=== PATIENT | female | born 1955 | race Caucasian/White ===

== ENCOUNTER 2017-05-25 07:46 | Day surgery (SDC) | payer MEDICARE, MEDICAID ==
[~2017-05-25] VITALS: Ht 152.4 cm; Wt 57.6 kg
[2017-05-25 09:32] LABS: BASOPHILS % 0.5 % (0.0-2.0); EOSINOPHILS % 1.5 % (0.0-5.0); HEMOGLOBIN. 13.1 g/dL (12.0-16.0); MEAN CORPUSCULAR VOLUME 92.6 fL (81.0-99.0); MEAN PLATELET VOLUME 7.8 fl (7.4-10.4); MONOCYTES % 8.4 % (2.0-8.0); NEUTROPHILS % 50.6 % (40.0-76.0); PLATELET 259 x1000/uL (130-400); RED BLOOD CELL COUNT 4.21 mill/uL (4.2-5.4); RED CELL DISTRIBUTION WIDTH 12.9 % (11.6-14.6)
[2017-05-25 09:39] LABS: CARBON DIOXIDE 30 mEq/L (21-32); CHLORIDE 107 mEq/L (98-107)
[2017-05-25] MEDS ORDERED: DOCU-138 PO (09:44)
[2017-05-25] MEDS ORDERED: DULO60CA44 PO (09:44)
[2017-05-25] MEDS ORDERED: ATOR20TA65 PO (09:44)
[2017-05-25] MEDS ORDERED: ZOLP10TA6 PO (09:44)
[2017-05-25] MEDS ORDERED: ASPI-1159 PO (09:44)
[2017-05-25] MEDS ORDERED: OMEP40CA34 PO (09:44)
[2017-05-25] MEDS ORDERED: LORA0.5T2 PO (09:44)
[2017-05-25] MEDS ORDERED: ACYC200C PO (09:48)
[2017-05-25] MEDS ORDERED: FENTANYL CITRATE/PF 50MCG/ML 2ML VIAL ONE (09:59)
[2017-05-25] MEDS ORDERED: MIDAZOLAM HCL 2 MG/2 ML VIAL ONE (09:59)
[2017-05-25] MEDS ORDERED: IOHEXOL-300 100 ML BOTTLE ONE (09:59)
[2017-05-25] MEDS ORDERED: LIDOCAINE HCL 1% 20ML VIAL (Pyxis) INJ ONE (10:00)
== END 2017-05-25 17:10 | disposition home or self-care (01) ==
LOC: CCL 07:46
PROVIDERS: ATTEND Internal Medicine Cardiovascular Disease
DX: I35.0 Nonrheumatic aortic (valve) stenosis (principal); I10 Essential (primary) hypertension; R06.09 Other forms of dyspnea; R07.9 Chest pain, unspecified
CPT/HCPCS: 36415; 80048; 85025; 93458; 93567; 99152; 99153; C1760; C1769; C1887; C1893; J1644; J2250; J3010; J3490; Q9967

== ENCOUNTER 2017-12-01 06:31 | Observation (INO) | payer MEDICARE, MEDICAID ==
[~2017-12-01] VITALS: Ht 152.9 cm; Wt 59.0 kg
[~2017-12-01 06:31] MED LIST: ACYC200C PO; ASPI-1159 PO; ATOR20TA65 PO; DOCU-138 PO; DULO60CA44 PO; LORA0.5T2 PO; OMEP40CA34 PO; ZOLP10TA6 PO
[2017-12-01] MEDS ORDERED: FENTANYL CITRATE/PF 50MCG/ML 5ML VIAL ONE (09:12)
[2017-12-01] MEDS ORDERED: PROPOFOL 200MG/20ML VIAL IV ONE (09:12)
[2017-12-01] MEDS ORDERED: MIDAZOLAM HCL 2 MG/2 ML VIAL ONE (09:12)
[2017-12-01] MEDS ORDERED: LIDOCAINE HCL/PF 1% 10 MG/ML 5ML VIAL ONE (09:13)
[2017-12-01] MEDS ORDERED: SUCCINYLCHOLINE CHLORIDE 200MG/10ML VIAL IV ONE (09:13)
[2017-12-01] MEDS ORDERED: VECURONIUM BROMIDE 10 MG/VIAL IV ONE (09:13)
[2017-12-01] MEDS ORDERED: CEFAZOLIN SODIUM 1000MG/VIAL ONE (09:13)
[2017-12-01] MEDS ORDERED: SKIN ADHESIVE 0.7 GM EA TOP ONE ×2 (09:16→09:17)
[2017-12-01] MEDS ORDERED: LIDOCAINE HCL 1% 20ML VIAL (Pyxis) INJ ONE (09:17)
[2017-12-01] MEDS ORDERED: NORMAL SALINE 0.9% 10 ML SYR ONE (09:17)
[2017-12-01] MEDS ORDERED: BUPIVACAINE HCL/PF 0.5% (5MG/ML) 10ML ONE (09:17)
[2017-12-01] MEDS ORDERED: BACITRACIN 50,000 UNITS/VIAL ONE (09:18)
[2017-12-01] MEDS ORDERED: SODIUM CHLORIDE 0.9% 1,000 ML ONE (09:18)
[2017-12-01] MEDS ORDERED: IOPAMIDOL 20 ML VIAL IT ONE (09:47)
[2017-12-01] MEDS ORDERED: GLYCOPYRROLATE 0.2 MG/ML 2ML VIAL ONE (10:16)
[2017-12-01] MEDS ORDERED: ONDANSETRON HCL 4MG/2ML VIAL ONE (11:00)
[2017-12-01] MEDS ORDERED: DEXAMETHASONE 4MG/ML 1ML VIAL ONE (11:01)
[2017-12-01] MEDS ORDERED: HYDROMORPHONE HCL/PF 2MG/ML CPJ IV PRN ×2 (11:15→12:00)
[2017-12-01] MEDS ORDERED: ONDANSETRON HCL 4MG/2ML VIAL IV PRN ×2 (11:15→12:00)
[2017-12-01] MEDS ORDERED: MEPERIDINE HCL/PF 25MG/ML CPJ IV PRN (11:15)
[2017-12-01] MEDS ORDERED: LABETALOL HCL 5MG/ML VIAL 20ML IV PRN (11:15)
[2017-12-01] MEDS ORDERED: MELO-104 PO (12:22)
[2017-12-01] MEDS ORDERED: ALEN70TA46 PO (12:22)
[2017-12-01] MEDS ORDERED: METO-396 PO (12:22)
[2017-12-01 13:00] VITALS: BP 108/54
[2017-12-01 14:39] VITALS: BP 108/54
[2017-12-01] MEDS: KETOROLAC 30MG/ML VIAL IV SCH ×2 (15:37→21:31)
[2017-12-01] MEDS: SODIUM CHLORIDE 0.45% 1,000 ML IV SCH ×2 (15:37→22:40)
[2017-12-01 16:00] VITALS: BP 110/58
[2017-12-01 20:00] VITALS: BP 121/66
[2017-12-01] MEDS ORDERED: ATORVASTATIN CALCIUM 20MG TABLET PO SCH (21:00)
[2017-12-01] MEDS ORDERED: DOCUSATE SODIUM 100MG CAPSULE PO SCH (21:00)
[2017-12-01] MEDS ORDERED: ZOLPIDEM TARTRATE 5MG TABLET PO PRN (21:00)
[2017-12-01] MEDS: METOPROLOL TARTRATE 25MG TABLET PO SCH ×3 (21:00→22:09)
[2017-12-02] VITALS: BP 130/64
[2017-12-02] MEDS: KETOROLAC 30MG/ML VIAL IV SCH ×3 (02:09→15:13)
[2017-12-02 04:00] VITALS: BP 92/48
[2017-12-02 06:42] VITALS: BP 102/56
[2017-12-02] MEDS ORDERED: OMEPRAZOLE 20MG CAPSULE EXTENDED RELEASE PO SCH (07:20)
[2017-12-02 08:00] VITALS: BP 109/53
[2017-12-02] MEDS: METOPROLOL TARTRATE 25MG TABLET PO SCH (08:38)
[2017-12-02] MEDS: SODIUM CHLORIDE 0.45% 1,000 ML IV SCH (08:40)
[2017-12-02] MEDS ORDERED: MELOXICAM 7.5MG TABLET PO SCH (09:00)
[2017-12-02] MEDS ORDERED: DULOXETINE HCL 60MG DR CAPSULE PO SCH (09:00)
[2017-12-02] MEDS ORDERED: LORAZEPAM 0.5MG TABLET PO SCH (09:00)
[2017-12-02] MEDS ORDERED: ASPIRIN 81MG EC TABLET PO SCH (09:00)
[2017-12-02 12:00] VITALS: BP 104/54
[2017-12-02 15:24] VITALS: BP 104/54
== END 2017-12-02 16:00 | disposition home or self-care (01) ==
LOC: OR 06:31 → 6EST 06:32 → INTOOBSV 06:32
PROVIDERS: ADMIT Specialist; ATTEND Specialist
DX: K80.10 Calculus of gallbladder with chronic cholecystitis without obstruction (principal); F41.9 Anxiety disorder, unspecified; I35.0 Nonrheumatic aortic (valve) stenosis
CPT/HCPCS: 47564; 88304; 96374; 96376; A4216; G0168; G0378; J0330; J0690; J1100; J1170; J1885; J2250; J2405; J3010; J3490; J7030; J7120; Q9966; J2704

== ENCOUNTER 2019-11-21 08:38 | Inpatient (IN) | payer MEDICARE, MEDICAID ==
[~2019-11-21] VITALS: Ht 152.4 cm; Wt 60.0 kg
[~2019-11-21 08:38] MED LIST changes: +ALEN70TA68 PO; -ASPI-1159 PO; +ASPI-1497 PO; +MELO-104 PO; +METO-396 PO; +OMEP40CA12 PO; -OMEP40CA34 PO
[2019-11-21] MEDS ORDERED: NITROGLYCERIN 50MCG/ML 10ML VIAL (CATH LAB) IV ONE (09:05)
[2019-11-21] MEDS ORDERED: HEPARIN SODIUM 1,000 UNIT/1ML VIAL IV ONE (09:05)
[2019-11-21] MEDS ORDERED: NICARDIPINE 100MCG/ML 10ML VIAL (CATH LAB) IV ONE (09:05)
[2019-11-21] MEDS ORDERED: PHENYLEPHRINE 100MCG/ML 10ML VIAL (CATH LAB) IV ONE (09:05)
[2019-11-21 10:30] LABS: BASOPHILS % 0.5 % (0.0-2.0); EOSINOPHILS % 1.1 % (0.0-5.0); HEMATOCRIT. 36.7 % (36.0-48.0); HEMOGLOBIN. 12.4 g/dL (12.0-16.0); LYMPHOCYTES % 46.5 % (20.0-50.0); MEAN CORPUSCULAR HEMOGLOBIN 31.4 pg (28.0-32.0); MEAN PLATELET VOLUME 8.1 fl (7.4-10.4); NEUTROPHILS % 42.9 % (40.0-76.0); PLATELET 215 x1000/uL (130-400); RED BLOOD CELL COUNT 3.95 mill/uL (4.2-5.4); RED CELL DISTRIBUTION WIDTH 13.2 % (11.6-14.6)
[2019-11-21 10:37] LABS: CHLORIDE 111 mEq/L (98-107); INR 0.9; PARTIAL THROMBOPLASTIN TIME 29.9 sec (23.4-31.0)
[2019-11-21] MEDS ORDERED: ACYC200C PO (10:57)
[2019-11-21] MEDS ORDERED: MELO-104 PO (10:57)
[2019-11-21] MEDS ORDERED: ARIP2TAB16 PO (10:57)
[2019-11-21] MEDS ORDERED: LORA-250 PO (10:57)
[2019-11-21] MEDS ORDERED: FLUT16SP15 NS (10:57)
[2019-11-21] MEDS ORDERED: ACETAMINOPHEN PO (10:57)
[2019-11-21] MEDS ORDERED: LIDOCAINE HCL 1% 20ML VIAL (Pyxis) INJ ONE (11:32)
[2019-11-21] MEDS ORDERED: FENTANYL CITRATE/PF 50MCG/ML 2ML VIAL ONE (11:33)
[2019-11-21] MEDS ORDERED: IODIXANOL 320MG/ML 100 ML BOTTLE IV ONE (11:33)
[2019-11-21] MEDS ORDERED: MIDAZOLAM HCL 2 MG/2 ML VIAL ONE (11:33)
[2019-11-21] MEDS ORDERED: ACETAMINOPHEN 325MG TABLET PO PRN (13:30)
[2019-11-21] MEDS ORDERED: MORPHINE SULFATE 4 MG/ML CPJ (NOT FOR IM USE) IV ONE (14:06)
[2019-11-21] MEDS: MORPHINE SULFATE 4 MG/ML CPJ (NOT FOR IM USE) IV PRN (14:11)
[2019-11-21 15:13] LABS: BASOPHILS % 0.4 % (0.0-2.0); EOSINOPHILS % 0.4 % (0.0-5.0); HEMATOCRIT. 36.9 % (36.0-48.0); HEMOGLOBIN. 12.4 g/dL (12.0-16.0); LYMPHOCYTES % 28.6 % (20.0-50.0); MEAN CORPUSCULAR HEMOGLOBIN 31.2 pg (28.0-32.0); MEAN CORPUSCULAR VOLUME 92.9 fL (81.0-99.0); MONOCYTES % 6.3 % (2.0-8.0); NEUTROPHILS % 64.3 % (40.0-76.0); PLATELET 207 x1000/uL (130-400); RED BLOOD CELL COUNT 3.97 mill/uL (4.2-5.4); RED CELL DISTRIBUTION WIDTH 13.4 % (11.6-14.6)
[2019-11-21 15:15] LABS: CHLORIDE 110 mEq/L (98-107)
[2019-11-21 15:37] LABS: INR 0.9; PARTIAL THROMBOPLASTIN TIME 31.5 sec (23.4-31.0); PROTHROMBIN TIME 10.3 sec (9.6-11.0)
[2019-11-21 20:00] VITALS: BP 109/67
[2019-11-21 21:00] VITALS: BP 110/62
[2019-11-21] MEDS ORDERED: ASCORBIC ACID 500 MG TABLET PO SCH (21:00)
[2019-11-21] MEDS ORDERED: DOCUSATE SODIUM 100MG CAPSULE PO SCH (21:00)
[2019-11-21] MEDS ORDERED: CHLORHEXIDINE GLUCONATE 4% EXTERNAL USE TOP SCH (21:00)
[2019-11-21] MEDS: METOPROLOL TARTRATE 50MG TABLET PO SCH (21:00)
[2019-11-21] MEDS ORDERED: ZOLPIDEM TARTRATE 5MG TABLET PO PRN (21:00)
[2019-11-21] MEDS ORDERED: DIPHENHYDRAMINE 25MG CAPSULE PO PRN (21:00)
[2019-11-21] MEDS: ALLOPURINOL 300 MG TABLET PO SCH (21:06)
[2019-11-21 22:00] VITALS: BP 122/69
[2019-11-22] VITALS (16 sets, daily range): BP systolic 99–130; BP diastolic 45–74
[2019-11-22] MEDS: ALLOPURINOL 300 MG TABLET PO SCH (05:16)
[2019-11-22] MEDS ORDERED: MAGNESIUM 2 G PREMIX 100 ML IV NR (08:00)
[2019-11-22] MEDS ORDERED: PNEUMOCOCCAL 23-VAL P-SAC VAC 0.5 ML IM ONE (08:00)
[2019-11-22] MEDS: METOPROLOL TARTRATE 50MG TABLET PO SCH ×2 (09:00→22:24)
[2019-11-22] MEDS ORDERED: INFLUENZA VIRUS VACCINE(AFLURIA) 0.5ML SYR IM ONE (10:00)
[2019-11-22] MEDS: ACETAMINOPHEN 650MG/20.3ML UDC PO PRN (17:02)
[2019-11-22] MEDS ORDERED: ONDANSETRON HCL 4MG/2ML INJ IV PRN (19:15)
[2019-11-22] MEDS ORDERED: ASCORBIC ACID 500 MG TABLET PO NR (21:45)
[2019-11-22] MEDS: CHLORHEXIDINE GLUCONATE 4% EXTERNAL USE TOP SCH (22:24)
[2019-11-23] VITALS (63 sets, daily range): BP systolic 90–155; BP diastolic 48–79
[2019-11-23 05:47] LABS: BASOPHILS % 0.9 % (0.0-2.0); EOSINOPHILS % 1.1 % (0.0-5.0); HEMATOCRIT. 34.8 % (36.0-48.0); HEMOGLOBIN. 11.9 g/dL (12.0-16.0); LYMPHOCYTES % 37.8 % (20.0-50.0); MEAN CORPUSCULAR HEMOGLOBIN 31.5 pg (28.0-32.0); MEAN CORPUSCULAR VOLUME 91.7 fL (81.0-99.0); MEAN PLATELET VOLUME 7.8 fl (7.4-10.4); MONOCYTES % 8.5 % (2.0-8.0); NEUTROPHILS % 51.7 % (40.0-76.0); PLATELET 199 x1000/uL (130-400); RED CELL DISTRIBUTION WIDTH 13.1 % (11.6-14.6)
[2019-11-23] MEDS: CHLORHEXIDINE GLUCONATE 4% EXTERNAL USE TOP SCH (05:50)
[2019-11-23] MEDS ORDERED: THROMBIN (BOVINE) 5000 UNITS/VIAL TOP ONE (05:57)
[2019-11-23] MEDS ORDERED: BACITRACIN 50,000 UNITS/VIAL ONE (05:58)
[2019-11-23] MEDS ORDERED: AMINOCAPROIC ACID 10,000 MG in SODIUM CHLORIDE 0.9% 460 ML IV PRN (06:00)
[2019-11-23] MEDS ORDERED: DOBUTAMINE 250MG PREMIX 250 ML IV PRN (06:00)
[2019-11-23] MEDS ORDERED: NOREPINEPHRINE 4 MG in DEXT 5% WATER 246 ML IV PRN (06:00)
[2019-11-23] MEDS ORDERED: CEFAZOLIN 2,000 MG in DEXT 5% WATER 100 ML IV PRN (06:00)
[2019-11-23] MEDS ORDERED: DEL NIDO ELECTROLYTE-S(PH 7.4) 1,000 ML IV PRN ×2 (06:00)
[2019-11-23] MEDS ORDERED: NICARDIPINE 40MG/200ML PREMIX 200 ML IV PRN (06:00)
[2019-11-23] MEDS ORDERED: PHENYLEPHRINE 10 MG in DEXT 5% WATER 249 ML IV PRN (06:00)
[2019-11-23] MEDS ORDERED: DOPAMINE 400MG/250ML PREMIX 250 ML IV PRN (06:00)
[2019-11-23] MEDS ORDERED: EPINEPHRINE 4 MG in DEXT 5% WATER 246 ML IV PRN (06:00)
[2019-11-23] MEDS ORDERED: INSULIN REGULAR (DRIP) 100 UNITS in SODIUM CHLORIDE 0.9% 99 ML IV PRN (06:00)
[2019-11-23 06:03] LABS: CHLORIDE 109 mEq/L (98-107)
[2019-11-23] MEDS ORDERED: HEPARIN 1000 UNITS/ML 10ML ONE ×2 (06:03→07:51)
[2019-11-23] MEDS ORDERED: ACETAMINOPHEN 500MG TABLET ONE (07:19)
[2019-11-23] MEDS ORDERED: MIDAZOLAM HCL 2 MG/2 ML VIAL ONE (07:24)
[2019-11-23] MEDS ORDERED: FENTANYL CITRATE/PF 50MCG/ML 2ML VIAL ONE (07:25)
[2019-11-23] MEDS ORDERED: ETOMIDATE 2MG/ML 10ML VIAL IV ONE (07:26)
[2019-11-23] MEDS ORDERED: ROCURONIUM BROMIDE 10MG/ML VIAL 5ML IV ONE (07:30)
[2019-11-23] MEDS ORDERED: STERILE WATER FOR INJECTION 10ML VIAL ONE (07:31)
[2019-11-23] MEDS ORDERED: AMINOCAPROIC ACID 250 MG/ML 20ML VIAL ONE ×2 (07:49→08:44)
[2019-11-23] MEDS ORDERED: PHENYLEPHRINE HCL 10 MG/ML 1ML (IV VIAL) IV ONE (07:50)
[2019-11-23] MEDS ORDERED: CALCIUM CHLORIDE 1GM/10ML SYR IV ONE (07:50)
[2019-11-23] MEDS ORDERED: ALBUMIN HUMAN 25GM/100ML (25%) IV ONE (07:50)
[2019-11-23] MEDS ORDERED: SODIUM BICARBONATE 8.4% 1 MEQ/ML 50ML SYR IV ONE ×2 (07:50→07:52)
[2019-11-23] MEDS ORDERED: MANNITOL 20% 500 ML IV ONE (07:50)
[2019-11-23] MEDS ORDERED: MAGNESIUM SULFATE 5GM/10ML VIAL IV ONE (07:50)
[2019-11-23] MEDS ORDERED: HEPARIN 10,000 UNITS/ML VIAL ONE (07:51)
[2019-11-23] MEDS ORDERED: ALBUMIN HUMAN 12.5G/250ML (5%) IV ONE (08:41)
[2019-11-23] MEDS ORDERED: METOCLOPRAMIDE HCL 10MG/2ML VIAL ONE (09:04)
[2019-11-23] MEDS ORDERED: NEOSTIGMINE METHYLSULFATE 1MG/ML 10 ML VIAL ONE (09:04)
[2019-11-23] MEDS ORDERED: ONDANSETRON HCL 4MG/2ML INJ ONE (09:04)
[2019-11-23] MEDS ORDERED: SODIUM CHLORIDE 0.9% 500 ML IV PRN (10:36)
[2019-11-23] MEDS ORDERED: KETOROLAC 30MG/ML VIAL ONE (10:43)
[2019-11-23] MEDS ORDERED: MAGNESIUM SULFATE 3 GM in DEXT 5% WATER 100 ML IV PRN (10:45)
[2019-11-23] MEDS ORDERED: ALBUMIN HUMAN 25GM/100ML (25%) IV PRN (10:45)
[2019-11-23] MEDS ORDERED: MAGNESIUM 1 G PREMIX 100 ML IV PRN (10:45)
[2019-11-23] MEDS ORDERED: KETOROLAC 15MG/ML VIAL IV PRN (10:45)
[2019-11-23] MEDS ORDERED: HYDROMORPHONE HCL/PF 2MG/ML (OR) ONE (10:56)
[2019-11-23] MEDS ORDERED: DOPAMINE 400MG/250ML PREMIX 250 ML IV SCH (11:00)
[2019-11-23] MEDS ORDERED: HYDROMORPHONE HCL/PF 2MG/ML CPJ ONE (11:13)
[2019-11-23] MEDS ORDERED: DEXTROSE 50% WATER 50ML SYRINGE IV PRN ×2 (11:30)
[2019-11-23] MEDS ORDERED: HYDROMORPHONE HCL/PF 2MG/ML CPJ IV NR (11:30)
[2019-11-23 11:36] LABS: BG BASE EXCESS -1.5 mmol/L (-2.0-2.0); BG CARBOXYHEMOGLOBIN 0.3 % (0.5-1.5); BG FRACTION INSPIRED OXYGEN 100; BG HCO3 ACT 25.5 mmol/L (22.0-26.0); BG METHEMOGLOBIN 0.3 % (0.0-1.5); BG OXYHEMOGLOBIN 97.4 % (94.0-97.0); BG PCO2 53.1 mmHg (35.0-45.0); BG PH 7.299 (7.350-7.450); BG PO2 138.5 mmHg (75.0-100.0); BG SAMPLE SITE RIGHT RADIAL; BG TOTAL HEMOGLOBIN 12.1 g/dL (12.0-18.0); BG VENT MODE MASK - NRB
[2019-11-23 11:49] LABS: BASOPHILS % 0.3 % (0.0-2.0); EOSINOPHILS % 0.3 % (0.0-5.0); HEMATOCRIT. 34.7 % (36.0-48.0); HEMOGLOBIN. 11.8 g/dL (12.0-16.0); LYMPHOCYTES % 14.2 % (20.0-50.0); MEAN CORPUSCULAR HEMOGLOBIN 31.2 pg (28.0-32.0); MEAN CORPUSCULAR VOLUME 91.4 fL (81.0-99.0); MEAN PLATELET VOLUME 8.6 fl (7.4-10.4); MONOCYTES % 2.7 % (2.0-8.0); NEUTROPHILS % 82.5 % (40.0-76.0); PLATELET 122 x1000/uL (130-400); RED BLOOD CELL COUNT 3.79 mill/uL (4.2-5.4); RED CELL DISTRIBUTION WIDTH 13.7 % (11.6-14.6)
[2019-11-23] MEDS: FAMOTIDINE 20MG/2ML VIAL IV SCH (11:53)
[2019-11-23 11:55] LABS: CHLORIDE 103 mEq/L (98-107)
[2019-11-23] MEDS: BLOOD SUGAR DIAGNOSTIC STRIP TEST SCH ×12 (12:00→23:02)
[2019-11-23] MEDS ORDERED: INSULIN REGULAR (DRIP) 100 UNITS in SODIUM CHLORIDE 0.9% 100 ML IV SCH (12:00)
[2019-11-23] MEDS ORDERED: KCL 10MEQ/50ML PREMIX 200 ML IV PRN (12:15)
[2019-11-23] MEDS ORDERED: KCL 10MEQ/50ML PREMIX 100 ML IV PRN (12:15)
[2019-11-23] MEDS ORDERED: KCL 10MEQ/50ML PREMIX 150 ML IV PRN (12:15)
[2019-11-23] MEDS: IPRATROPIUM/ALBUTEROL 0.5-3(2.5)MG/3ML NEB HHN SCH ×3 (12:49→20:59)
[2019-11-23] MEDS: CEFAZOLIN 1000MG PREMIX 50 ML IV SCH ×2 (13:06→21:02)
[2019-11-23] MEDS: ALBUMIN HUMAN 12.5G/250ML (5%) IV PRN ×2 (14:25→14:30)
[2019-11-23] MEDS ORDERED: ALBUMIN HUMAN 12.5G/250ML (5%) IV NR (14:30)
[2019-11-23] MEDS: BACITRACIN 15GM TUBE TOP SCH (16:10)
[2019-11-23] MEDS: DOCUSATE SODIUM 100MG CAPSULE PO SCH (16:10)
[2019-11-23 17:18] LABS: BASOPHILS % 0.1 % (0.0-2.0); EOSINOPHILS % 0.2 % (0.0-5.0); HEMATOCRIT. 35.3 % (36.0-48.0); HEMOGLOBIN. 12.3 g/dL (12.0-16.0); LYMPHOCYTES % 13.9 % (20.0-50.0); MEAN CORPUSCULAR HEMOGLOBIN 31.6 pg (28.0-32.0); MEAN CORPUSCULAR VOLUME 90.4 fL (81.0-99.0); MONOCYTES % 7.1 % (2.0-8.0); NEUTROPHILS % 78.7 % (40.0-76.0); PLATELET 89 x1000/uL (130-400)
[2019-11-23 17:25] LABS: CHLORIDE 113 mEq/L (98-107)
[2019-11-23] MEDS: OXYCODONE HCL/ACETAMINOPHEN 5/325MG TABLET PO PRN ×2 (17:31→21:03)
[2019-11-23 17:45] LABS: PARTIAL THROMBOPLASTIN TIME 47.9 sec (23.4-31.0); PROTHROMBIN TIME 10.8 sec (9.6-11.0)
[2019-11-23] MEDS: ACETAMINOPHEN 650MG/20.3ML UDC PO PRN (22:48)
[2019-11-23] MEDS: DEXT 5%/0.45% NACL 1000ML 1,000 ML IV SCH (23:01)
[2019-11-23] MEDS ORDERED: ALBUMIN HUMAN 25GM/500ML (5%) IV NR (23:30)
[2019-11-23] MEDS ORDERED: CALCIUM CHLORIDE 3,000 MG in DEXT 5% WATER 250 ML IV NR (23:30)
[2019-11-24] VITALS (55 sets, daily range): BP systolic 100–294; BP diastolic 50–292
[2019-11-24] MEDS ORDERED: CALCIUM CHLORIDE 3,000 MG in DEXT 5% WATER 250 ML IV SCH ×2
[2019-11-24] MEDS: IPRATROPIUM/ALBUTEROL 0.5-3(2.5)MG/3ML NEB HHN SCH ×6 (00:44→21:15)
[2019-11-24 00:53] LABS: BASOPHILS % 0.1 % (0.0-2.0); EOSINOPHILS % 0.5 % (0.0-5.0); HEMATOCRIT. 34.1 % (36.0-48.0); HEMOGLOBIN. 11.8 g/dL (12.0-16.0); MEAN CORPUSCULAR HEMOGLOBIN 31.6 pg (28.0-32.0); MEAN PLATELET VOLUME 8.2 fl (7.4-10.4); MONOCYTES % 10.6 % (2.0-8.0); NEUTROPHILS % 80.8 % (40.0-76.0); PLATELET 77 x1000/uL (130-400); RED BLOOD CELL COUNT 3.75 mill/uL (4.2-5.4); RED CELL DISTRIBUTION WIDTH 14.4 % (11.6-14.6)
[2019-11-24] MEDS ORDERED: CALCIUM CHLORIDE IV SCH (01:00)
[2019-11-24] MEDS ORDERED: DEXT 5% IV SCH (01:00)
[2019-11-24] MEDS ORDERED: WATER IV SCH (01:00)
[2019-11-24 01:18] LABS: CHLORIDE 112 mEq/L (98-107)
[2019-11-24] MEDS: BLOOD SUGAR DIAGNOSTIC STRIP TEST SCH ×16 (01:20→20:37)
[2019-11-24] MEDS: MAGNESIUM 2 G PREMIX 50 ML IV PRN ×2 (01:50→02:10)
[2019-11-24] MEDS ORDERED: MAGNESIUM 2 G PREMIX 50 ML IV ONE (02:00)
[2019-11-24] MEDS: HYDROCODONE/ACETAMINOPHEN 5/325MG TABLET PO PRN ×2 (03:57→23:30)
[2019-11-24] MEDS: CEFAZOLIN 1000MG PREMIX 50 ML IV SCH ×2 (04:15→12:22)
[2019-11-24 05:40] LABS: CHLORIDE 110 mEq/L (98-107)
[2019-11-24 05:47] LABS: BASOPHILS % 0.1 % (0.0-2.0); EOSINOPHILS % 0.5 % (0.0-5.0); HEMOGLOBIN. 12.8 g/dL (12.0-16.0); LYMPHOCYTES % 10.7 % (20.0-50.0); MEAN CORPUSCULAR HEMOGLOBIN 32.2 pg (28.0-32.0); MEAN CORPUSCULAR VOLUME 90.8 fL (81.0-99.0); MEAN PLATELET VOLUME 8.3 fl (7.4-10.4); MONOCYTES % 8.4 % (2.0-8.0); NEUTROPHILS % 80.3 % (40.0-76.0); PLATELET 77 x1000/uL (130-400); RED BLOOD CELL COUNT 3.96 mill/uL (4.2-5.4); RED CELL DISTRIBUTION WIDTH 14.2 % (11.6-14.6)
[2019-11-24] MEDS ORDERED: FUROSEMIDE 40MG/4ML VIAL IVP SCH (06:30)
[2019-11-24] MEDS: MAGNESIUM HYDROXIDE 400MG/5ML 30ML UDC PO SCH ×2 (07:51→18:09)
[2019-11-24] MEDS: DEXT 5%/0.45% NACL 1000ML 1,000 ML IV SCH (07:51)
[2019-11-24] MEDS: FAMOTIDINE 20MG/2ML VIAL IV SCH (07:51)
[2019-11-24] MEDS: DOCUSATE SODIUM 100MG CAPSULE PO SCH ×2 (07:51→18:10)
[2019-11-24] MEDS: OXYCODONE HCL/ACETAMINOPHEN 5/325MG TABLET PO PRN ×3 (07:51→19:05)
[2019-11-24] MEDS: BACITRACIN 15GM TUBE TOP SCH ×2 (07:52→18:09)
[2019-11-24] MEDS ORDERED: DEXTROSE 50% WATER 50ML SYRINGE IV PRN (11:00)
[2019-11-24] MEDS: MINERAL OIL 30ML BOTTLE PO SCH (12:22)
[2019-11-24] MEDS: INSULIN LISPRO 100 UNITS/ML SUBCUT SCH ×3 (12:22→20:54)
[2019-11-25] VITALS (9 sets, daily range): BP systolic 95–128; BP diastolic 54–72
[2019-11-25] MEDS: IPRATROPIUM/ALBUTEROL 0.5-3(2.5)MG/3ML NEB HHN SCH ×5 (00:31→21:00)
[2019-11-25] MEDS: MORPHINE SULFATE 4 MG/ML CPJ (NOT FOR IM USE) IV PRN (06:01)
[2019-11-25] MEDS: BLOOD SUGAR DIAGNOSTIC STRIP TEST SCH ×4 (06:03→21:00)
[2019-11-25] MEDS: INSULIN LISPRO 100 UNITS/ML SUBCUT SCH ×4 (06:03→21:00)
[2019-11-25] MEDS: FUROSEMIDE 40MG TABLET PO SCH (06:21)
[2019-11-25 06:45] LABS: CHLORIDE 105 mEq/L (98-107)
[2019-11-25 06:53] LABS: BASOPHILS % 0.3 % (0.0-2.0); EOSINOPHILS % 1.4 % (0.0-5.0); HEMATOCRIT. 34.8 % (36.0-48.0); LYMPHOCYTES % 13.5 % (20.0-50.0); MEAN CORPUSCULAR HEMOGLOBIN 31.4 pg (28.0-32.0); MEAN CORPUSCULAR VOLUME 91.2 fL (81.0-99.0); MEAN PLATELET VOLUME 8.7 fl (7.4-10.4); MONOCYTES % 10.3 % (2.0-8.0); NEUTROPHILS % 74.5 % (40.0-76.0); PLATELET 78 x1000/uL (130-400); RED BLOOD CELL COUNT 3.81 mill/uL (4.2-5.4); RED CELL DISTRIBUTION WIDTH 14.2 % (11.6-14.6)
[2019-11-25] MEDS: MAGNESIUM HYDROXIDE 400MG/5ML 30ML UDC PO SCH ×2 (08:07→15:40)
[2019-11-25] MEDS: DOCUSATE SODIUM 100MG CAPSULE PO SCH ×2 (08:07→15:40)
[2019-11-25] MEDS: FAMOTIDINE 20MG/2ML VIAL IV SCH (08:07)
[2019-11-25] MEDS: BACITRACIN 15GM TUBE TOP SCH ×2 (08:08→15:50)
[2019-11-25] MEDS: MINERAL OIL 30ML BOTTLE PO SCH (08:20)
[2019-11-25] MEDS ORDERED: MAGNESIUM 2 G PREMIX 50 ML IV NR (09:00)
[2019-11-25] MEDS: HYDROCODONE/ACETAMINOPHEN 5/325MG TABLET PO PRN ×2 (11:12→17:24)
[2019-11-25] MEDS: LACTULOSE 20G/30ML UDC PO SCH ×2 (17:52→21:00)
[2019-11-25] MEDS ORDERED: POLYETHYLENE GLYCOL 3350 (17GM) 1 DOSE PACK PO SCH (21:00)
[2019-11-26] MEDS: IPRATROPIUM/ALBUTEROL 0.5-3(2.5)MG/3ML NEB HHN SCH ×4 (00:36→11:55)
[2019-11-26] MEDS: HYDROCODONE/ACETAMINOPHEN 5/325MG TABLET PO PRN ×3 (01:05→10:20)
[2019-11-26] MEDS: INSULIN LISPRO 100 UNITS/ML SUBCUT SCH ×2 (06:36→12:20)
[2019-11-26] MEDS: BLOOD SUGAR DIAGNOSTIC STRIP TEST SCH ×2 (06:36→12:46)
[2019-11-26] MEDS: FAMOTIDINE 20MG/2ML VIAL IV SCH (08:49)
[2019-11-26] MEDS: FUROSEMIDE 40MG TABLET PO SCH (08:49)
[2019-11-26] MEDS: DOCUSATE SODIUM 100MG CAPSULE PO SCH (08:49)
[2019-11-26] MEDS: LACTULOSE 20G/30ML UDC PO SCH (08:50)
[2019-11-26] MEDS: MAGNESIUM HYDROXIDE 400MG/5ML 30ML UDC PO SCH (08:50)
[2019-11-26] MEDS: MINERAL OIL 30ML BOTTLE PO SCH (08:50)
[2019-11-26] MEDS: BACITRACIN 15GM TUBE TOP SCH (08:51)
[2019-11-26 09:15] LABS: BASOPHILS % 0.4 % (0.0-2.0); EOSINOPHILS % 1.9 % (0.0-5.0); HEMATOCRIT. 33.1 % (36.0-48.0); HEMOGLOBIN. 11.2 g/dL (12.0-16.0); LYMPHOCYTES % 26.6 % (20.0-50.0); MEAN CORPUSCULAR HEMOGLOBIN 31.2 pg (28.0-32.0); MEAN CORPUSCULAR VOLUME 92.1 fL (81.0-99.0); MEAN PLATELET VOLUME 8.4 fl (7.4-10.4); MONOCYTES % 5.8 % (2.0-8.0); NEUTROPHILS % 65.3 % (40.0-76.0); PLATELET 82 x1000/uL (130-400); RED BLOOD CELL COUNT 3.59 mill/uL (4.2-5.4); RED CELL DISTRIBUTION WIDTH 13.9 % (11.6-14.6)
[2019-11-26 09:29] LABS: CHLORIDE 104 mEq/L (98-107)
[2019-11-26] MEDS ORDERED: POTASSIUM CHLORIDE 20MEQ TABLET SR PO NR (12:45)
[2019-11-26 15:06] VITALS: BP 113/61
== END 2019-11-26 16:00 | disposition home health service (06) | DRG 217 ==
LOC: CCL 08:38 → 3WST 20:03 → CVICU 11-23 08:08 → 3WST 11-25 01:53
PROVIDERS: ADMIT Internal Medicine Cardiovascular Disease; ATTEND Internal Medicine Cardiovascular Disease
PROC: 4A023N8 Measurement of Cardiac Sampling and Pressure, Bilateral, Percutaneous Approach (ICD-10-PCS; principal; 2019-11-21)
PROC: B2111ZZ Fluoroscopy of Multiple Coronary Arteries using Low Osmolar Contrast (ICD-10-PCS; 2019-11-21)
PROC: B2151ZZ Fluoroscopy of Left Heart using Low Osmolar Contrast (ICD-10-PCS; 2019-11-21)
PROC: 02RF08Z Replacement of Aortic Valve with Zooplastic Tissue, Open Approach (ICD-10-PCS; 2019-11-23)
PROC: B24BZZ4 Ultrasonography of Heart with Aorta, Transesophageal (ICD-10-PCS; 2019-11-23)
PROC: 5A1221Z Performance of Cardiac Output, Continuous (ICD-10-PCS; 2019-11-23)
PROC: 30233N1 Transfusion of Nonautologous Red Blood Cells into Peripheral Vein, Percutaneous Approach (ICD-10-PCS; 2019-11-23)
PROC: 05HY33Z Insertion of Infusion Device into Upper Vein, Percutaneous Approach (ICD-10-PCS; 2019-11-23)
PROC: 04HY32Z Insertion of Monitoring Device into Lower Artery, Percutaneous Approach (ICD-10-PCS; 2019-11-23)
DX: I35.0 Nonrheumatic aortic (valve) stenosis (principal); J98.11 Atelectasis; F41.9 Anxiety disorder, unspecified; R26.2 Difficulty in walking, not elsewhere classified; E78.5 Hyperlipidemia, unspecified; G90.8 Other disorders of autonomic nervous system; D72.829 Elevated white blood cell count, unspecified; D64.9 Anemia, unspecified; I25.10 Atherosclerotic heart disease of native coronary artery without angina pectoris; I11.9 Hypertensive heart disease without heart failure; R26.9 Unspecified abnormalities of gait and mobility; R73.9 Hyperglycemia, unspecified; E87.8 Other disorders of electrolyte and fluid balance, not elsewhere classified; Z87.891 Personal history of nicotine dependence; Z90.49 Acquired absence of other specified parts of digestive tract
CPT/HCPCS: 36415; 36600; 71045; 80048; 80053; 82375; 82805; 82962; 83036; 83735; 84132; 85025; 85347; 85520; 86850; 86870; 86880; 86900; 86901; 86902; 86905; 86906; 86920; 86971; 87070; 87075; 88305; 88311; 90686; 90732; 92610; 93005; 93460; 93880; 94640; 97110; 97116; 97162; 97166; 97530; A4216; C1729; C1751; C1758; C1760; C1769; C1887; C1893; J0690; J1170; J1644; J1815; J1885; J1940; J2250; J2270; J2370; J2405; J2710; J2765; J3010; J3475; J3490; J7050; J7060; L3908; P9016; P9041; P9047; Q0163; Q9967